=== PATIENT | male | born 1990 | race Caucasian/White ===

== ENCOUNTER 2017-09-25 15:49 | Emergency (ER) | payer SELFPAY ==
--- NOTE | 2017-09-25 15:54 | PDOC ---
History of Present Illness - General History Source: EMS, Significant Other (Girlfriend) Exam Limitations: Unresponsive - History of Present Illness Initial Comments: 09/25/17 16:33 The patient is a 27 year old male with a significant PMH of cigarette smoker and heroin use presents to the emergency department via EMS for overdose. The patient is unresponsive at presentation so history was provided by girlfriend, EMS, and [place]' police officers. As per the girlfriend, the patient used heroin last night and used Xanax this morning. According to [place] police officers, they were called in by [facility] for overdose where he was going for drug detox. The patient's girlfriend reports she has been living with the patient in a car. Allergies: NKA Past surgical history: None reported. Social history: Cigarette use (10/day). Heroin and crack/cocaine use. No reported alcohol use. <Falguni Seo - Last Filed: 09/25/17 16:35> <Ginny Vázquez - Last Filed: 09/26/17 16:24> - General Stated Complaint: OVERDOSE Time Seen by Provider: 09/25/17 15:54 Past History <Falguni Seo - Last Filed: 09/25/17 16:35> <Ginny Vázquez - Last Filed: 09/26/17 16:24> - Past Medical History Allergies/Adverse Reactions: Allergies Allergy/AdvReac Type Severity Reaction Status Date / Time Penicillins Allergy Rash Verified 09/25/17 17:07 Home Medications: Ambulatory Orders NK [No Known Home Medication] 09/25/17 Review of Systems - Review of Systems Able to Perform ROS?: No (intoxicated) <Ginny Vázquez - Last Filed: 09/26/17 16:24> *Physical Exam - Vital Signs Last Vital Signs Temp Pulse Resp BP Pulse Ox 97.8 F 52 L 18 125/80 100 09/25/17 16:00 09/25/17 16:00 09/25/17 16:00 09/25/17 16:00 09/25/17 16:00 <Falguni Seo - Last Filed: 09/25/17 16:35> - Physical Exam Comments: GENERAL: Sleeping, awakens to noxious stimuli. Normal respiratory rate. HEAD: No signs of trauma EYES: Pupils pinpoint but reactive, EOMI, sclera anicteric, conjunctiva clear ENT: Auricles normal inspection, hearing grossly normal, nares patent, oropharynx clear without exudates. Moist mucosa NECK: Normal ROM, supple, no lymphadenopathy, JVD, or masses LUNGS: Breath sounds equal, clear to auscultation bilaterally. No wheezes, and no crackles HEART: Regular rate and rhythm, normal S1 and S2, no murmurs, rubs or gallops ABDOMEN: Soft, nontender, normoactive bowel sounds. No guarding, no rebound. No masses EXTREMITIES: Normal range of motion, no edema. No clubbing or cyanosis. No cords, erythema, or tenderness NEUROLOGICAL: Limited by AMS. Moves all extremities. SKIN: Warm, Dry, normal turgor, no rashes or lesions noted. <Ginny Vázquez - Last Filed: 09/26/17 16:24> ED Treatment Course - ADDITIONAL ORDERS Additional order review: Laboratory Results 09/25/17 15:59 POC Glucometer [id number] 09/25/17 15:59 POC Glucometer [id number] <Falguni Seo - Last Filed: 09/25/17 16:35> - LABORATORY CBC & Chemistry Diagram: 09/25/17 17:00 09/25/17 17:00 <Ginny Vázquez - Last Filed: 09/26/17 16:24> Medical Decision Making - Medical Decision Making 09/25/17 19:[address] Ulloa at 7pm shift change. Pt is maintaining his airway , still not ambulatory, not yet ready for discharge. Continue to monitor to sobriety. <Ginny Vázquez - Last Filed: 09/26/17 16:24> *DC/Admit/Observation/Transfer - Attestations Scribe Attestion: 09/25/17 16:35 Documentation prepared by Falguni Seo, acting as medical receptionist assistant for Ginny Vázquez MD. <Falguni Seo - Last Filed: 09/25/17 16:35> <Ginny Vázquez - Last Filed: 09/26/17 16:24> Diagnosis at time of Disposition: Overdose, Heroin abuse - Discharge Dispostion Disposition: HOME Condition at time of disposition: Stable - Patient Instructions Printed Discharge Instructions: Narcotic Abuse Additional Instructions: please follow up with a rehab ads soon as possible.
[2017-09-25] MEDS ORDERED: NALOXONE HCL 0.4 MG/ML VIAL ONE (16:02)
[2017-09-25 16:15] VITALS: BMI 21.2
[2017-09-25 17:07] LABS: BASO % 0.9 % (0-2.0); EOS # 0.4 # (0-4.5); EOS % 9.3 % (0-4.5); MCH 29.9 pg (25.7-33.7); MCHC 33.4 g/dl (32.0-35.9); MEAN CELL VOLUME 89.6 fl (80-96); MEAN PLT VOLUME 8.4 fl (7.5-11.1); MONO # 0.6 # (3.8-10.2); NEUT # 2.5 # (42.8-82.8); NEUT % 53.9 % (42.8-82.8); PLATELET COUNT 178 K/MM3 (134-434); RDW 12.4 % (11.9-15.9); WHITE BLOOD COUNT 4.6 K/mm3 (4.0-10.0)
[2017-09-25 17:21] LABS: ALCOHOL < 5.0 mg/dl (0-5)
[2017-09-25 17:23] LABS: SALICYLATE < 4.0 mg/dl (0.0-30.0)
[2017-09-25 17:24] LABS: ALBUMIN 3.4 g/dl (3.4-5.0); ANION GAP 5 (8-16); BILIRUBIN,TOTAL 0.3 mg/dL (0.2-1.0); CALCIUM 8.3 mg/dL (8.5-10.1); CO2 31 mmol/L (21-32); CREATININE 0.8 mg/dL (0.7-1.3); GLUCOSE,RANDOM 99 mg/dL (74-106); SGOT/AST 29 U/L (15-37); SGPT/ALT 35 U/L (12-78); TOT PROT 6.5 g/dl (6.4-8.2)
[2017-09-25 17:25] LABS: ALK PHOS 74 U/L (45-117)
--- NOTE | 2017-09-26 07:38 | PDOC ---
*Physical Exam - Vital Signs Last Vital Signs Temp Pulse Resp BP Pulse Ox 97.8 F 79 19 113/66 99 09/25/17 16:00 09/26/17 07:17 09/26/17 07:17 09/26/17 07:17 09/26/17 04:00 ED Treatment Course - LABORATORY CBC & Chemistry Diagram: 09/25/17 17:00 09/25/17 17:00 - ADDITIONAL ORDERS Additional order review: 09/25/17 09/25/17 17:00 15:59 RBC 4.29 MCV 89.6 MCHC 33.4 RDW 12.4 MPV 8.4 Neutrophils % 53.9 Lymphocytes % 21.8 Monocytes % 14.1 H Eosinophils % 9.3 H Basophils % 0.9 POC Glucometer [id number] Medical Decision Making - Medical Decision Making 09/26/17 07:38 Pt is alert and awake. Denies any complaints at this time. Pt is currently accompained by girlfriend. States wants to see family and will follow up with [facility]. Didn't want to wait for phone call to be made. *DC/Admit/Observation/Transfer Diagnosis at time of Disposition: Overdose, Heroin abuse - Discharge Dispostion Disposition: HOME Condition at time of disposition: Stable Admit: No - Referrals - Patient Instructions Printed Discharge Instructions: Narcotic Abuse Additional Instructions: please follow up with a rehab ads soon as possible. - Post Discharge Activity
[2017-09-26 08:22] VITALS: BP 120/62; PULSE 76; TEMP 97.9
== END 2017-09-26 07:40 | disposition home or self-care (01) ==
LOC: JER 15:49
DX: T40.1X1A Poisoning by heroin, accidental (unintentional), initial encounter (principal); Y92.89 Other specified places as the place of occurrence of the external cause
CPT/HCPCS: 36415; 80053; 80307; 85025; 99285-25

== ENCOUNTER 2017-09-27 18:31 | Inpatient (IN) | payer OTHER ==
[2017-09-27 19:38] VITALS: BMI 24.9
--- NOTE | 2017-09-27 21:05 | HP ---
COWS - Scale Resting Pulse: 1= [place] 81-100 Sweatin=Flushed/Facial Moisture Restless Observation: 0= Sits Still Pupil Size: 1= Pupils >than Normal Bone or Joint Aches: 4=Acute Joint/Muscle Pain Runny Nose/ Eye Tearin= Runny Nose/Eyes GI Upset > 30mins: 3= Vomiting/Diarrhea (vomiting x 2, diarrhea) Tremor Observation: 2= Slight Tremor Visible Yawning Observation: 0= None Anxiety or Irritability: 4=Extreme Anxiety Goose Flesh Skin: 0=Smooth Skin COWS Score: 19 Admission ROS [facility] Chief Complaint: Opiate withdrawal symptoms Allergies/Adverse Reactions: Allergies Allergy/AdvReac Type Severity Reaction Status Date / Time ketorolac [From Toradol] Allergy Mild Rash Verified 09/27/17 22:16 phenytoin [From Dilantin] Allergy Mild Rash Verified 09/27/17 22:16 divalproex sodium Allergy Verified 09/27/17 22:16 [From Depakote] Penicillins Allergy Rash Verified 09/27/17 22:14 History of Present Illness: 27 years with a long history of opiates, cocaine, marijuana and xanax dependence is admitted to detox. Patient reports previous detox at [facility] in [place], [place] and insignificant period of sobriety. He has past medical history Hep C and depression. Denies suicidal ideation at this time. Clara states, '' I just want to get off this addiction problem'' Exam Limitations: No Limitations - Ebola screening Have you traveled outside of the country in the last 21 days: No Have you had contact with anyone from an Ebola affected area: No Have you been sick,other than usual withdrawal symptoms: No Do you have a fever: No - Review of Systems Constitutional: Chills, Loss of Appetite, Malaise, Night Sweats, Changes in sleep, Weakness EENT: reports: No Symptoms Reported Respiratory: reports: No Symptoms reported Cardiac: reports: No Symptoms Reported GI: reports: Diarrhea (x 2,), Nausea, Poor Appetite, Poor Fluid Intake, Vomiting , Abdominal cramping : reports: No Symptoms Reported Musculoskeletal: reports: Joint Pain, Muscle Pain, Muscle Weakness Integumentary: reports: Flushing Neuro: reports: Headache, Tingling, Tremors Endocrine: reports: No Symptoms Reported Hematology: reports: No Symptoms Reported Psychiatric: reports: Mood/Affect Appropiate, Orientated x3, Agitated, Anxious, Depressed Other Systems: Reviewed and Negative Patient History - Patient Medical History Hx Anemia: No Hx Asthma: No Hx Chronic Obstructive Pulmonary Disease (COPD): No Hx Cancer: No Hx Cardiac Disorders: No Hx Congestive Heart Failure: No Hx Hypertension: No Hx Hypercholesterolemia: No Hx Pacemaker: No HX Cerebrovascular Accident: No Hx Seizures: No Hx Dementia: No Hx Diabetes: No Hx Gastrointestinal Disorders: No Hx Liver Disease: No Hx Genitourinary Disorders: No Hx Sexually Transmitted Disorders: No Hx Renal Disease (ESRD): No Hx Thyroid Disease: No Hx Human Immunodeficiency Virus (HIV): No (Negative 07/2017) Hx Hepatitis C: Yes Hx Depression: Yes Hx Suicide Attempt: No (Denies suicidal ideation) Hx Bipolar Disorder: Yes Hx Schizophrenia: No - Patient Surgical History Past Surgical History: No - PPD History Previous Implant?: Yes Documented Results: Negative w/proof Implanted On Prior [facility] Admission?: Yes PPD to be Administered?: No - Smoking Cessation Smoking history: Current every day smoker Have you smoked in the past 12 months: Yes Aproximately how many cigarettes per day: 10 Hx Chewing Tobacco Use: No Initiated information on smoking cessation: Yes 'Breaking Loose' booklet given: 09/27/17 - Substance & Tx. History Hx Alcohol Use: No Hx Substance Use: Yes Substance Use Type: Cocaine, Heroin, Marijuana, Opiates - Substances Abused Heroin Route: Injection Frequency: Daily Amount used: 20 bags Age of first use: 22 Date of Last Use: 09/26/17 Marijuana/Hashish Route: Smoking Frequency: 3-6 times per week Amount used: 1 gram Age of first use: 27 Date of Last Use: 09/25/17 Alprazolam (Xanax) Route: Oral Frequency: Daily Amount used: 3 x 2mg tablet Age of first use: 27 Date of Last Use: 09/26/17 Family Disease History - Family Disease History Family Disease History: Other: Father (Opiate addiction) Admission Physical Exam [facility] - Vital Signs Vital Signs: Vital Signs - 24 hr 09/27/17 19:31 Temperature 96 F L Pulse Rate 98 H Respiratory 18 Rate Blood Pressure 147/71 - Physical General Appearance: Yes: Moderate Distress, Tremorous, Irritable, Sweating, Anxious HEENTM: Yes: EOMI, Normal Voice, ELIZABETH Respiratory: Yes: Lungs Clear, Normal Breath Sounds, No Respiratory Distress Neck: Yes: Supple, Trachea in good position Breast: Yes: Breast Exam Deferred Abdominal: Yes: Normal Bowel Sounds, Flat, Soft Genitourinary: Yes: Within Normal Limits Back: Yes: Within Normal Limits Musculoskeletal: Yes: Back pain, Muscle Pain, Muscle weakness Extremities: Yes: Tremors Neurological: Yes: Within Normal Limits, Alert, Normal Mood/Affect, Normal Response Integumentary: Yes: Dry, Track Vyas (right hand) Lymphatic: Yes: Within Normal Limits - Diagnostic (1) Opioid dependence with withdrawal Current Visit: Yes Status: Chronic (2) Cocaine dependence with withdrawal Current Visit: Yes Status: Chronic (3) Cannabis dependence, uncomplicated Current Visit: Yes Status: Chronic (4) Sedative, hypnotic or anxiolytic dependence with withdrawal, uncomplicated Current Visit: Yes Status: Chronic (5) Nicotine dependence Current Visit: Yes Status: Chronic (6) Hep C w/o coma, chronic Current Visit: Yes Status: Chronic (7) Depression Current Visit: Yes Status: Chronic Cleared for Admission [facility] - Detox or Rehab [facility] Level of Care: Medically Managed Detox Regimen/Protocol: Methadone [facility] Breath Alcohol Content Breath Alcohol Content: 0 Urine Drug Screen - Results Drug Screen Negative: No Urine Drug Screen Results: THC-Marijuana, DRISS-Cocaine, OPI-Opiates, BZO- Benzodiazepines, TCA-Tricyclic Antidepress
[2017-09-27] MEDS ORDERED: METHADONE HCL 10 MG TABLET (FOR DETOX USE ONLY) PO ONE ×2 (21:32→23:00)
[2017-09-27] MEDS ORDERED: MAGNESIUM CITRATE 300 ML BOTTLE PO PRN (21:32)
[2017-09-27] MEDS ORDERED: NICOTINE POLACRILEX 2 MG GUM BUC PRN (21:32)
[2017-09-27] MEDS ORDERED: guaiFENesin/D-METHORPHAN HB 10 ML UNIT-DOSE CUPS PO PRN (21:32)
[2017-09-27] MEDS ORDERED: IBUPROFEN 400 MG TABLET (FP) PO PRN (21:32)
[2017-09-27] MEDS ORDERED: LOPERAMIDE HCL 2 MG CAPSULE PO PRN (21:32)
[2017-09-27] MEDS ORDERED: MAGNESIUM HYDROX 2400MG/30ML ORAL SUSPENSION 30 ML CUP PO PRN (21:32)
[2017-09-27] MEDS ORDERED: ACETAMINOPHEN 325 MG TABLET (FP) PO PRN (21:32)
[2017-09-27] MEDS ORDERED: MENTHOL/PHENOL 1 EACH UD MM PRN (21:32)
[2017-09-27] MEDS ORDERED: MAG HYDROX/AL HYDROX/SIMETH 30 ML UNIT-DOSE CUP PO PRN (21:32)
[2017-09-27] MEDS ORDERED: P-EPHED 60MG/TRIPROLIDI 2.5MG TABLET PO PRN (21:32)
[2017-09-27] MEDS: THIAMINE HCL 100 MG TABLET (FP) PO SCH (23:08)
[2017-09-27] MEDS: diazePAM 5 MG TABLET PO PRN (23:08)
[2017-09-28 02:18] LABS: URINE APPEARANCE TURBID; URINE BILIRUBIN NEGATIVE (NEGATIVE); URINE BLOOD NEGATIVE (NEGATIVE); URINE COLOR AMBER; URINE GLUCOSE (UA) NEGATIVE (NEGATIVE); URINE KETONE NEGATIVE (NEGATIVE); URINE LEUK ESTERASE NEGATIVE (NEGATIVE); URINE NITRITE NEGATIVE (NEGATIVE)
[2017-09-28 02:28] LABS: URINE PROTEIN 1+ (NEGATIVE)
[2017-09-28 02:36] LABS: EPI CELLS RARE /HPF (FEW); URINE MUCUS FEW
[2017-09-28 09:55] LABS: HEMOGLOBIN 13.4 GM/dL (11.7-16.9); WHITE BLOOD COUNT 5.1 K/mm3 (4.0-10.0)
[2017-09-28 09:58] LABS: HEMATOCRIT 41.1 % (35.4-49); MCHC 32.7 g/dl (32.0-35.9); MEAN CELL VOLUME 88.8 fl (80-96); MEAN PLT VOLUME 8.4 fl (7.5-11.1); PLATELET COUNT 211 K/MM3 (134-434); RBC 4.63 M/mm3 (4.00-5.60); RDW 12.7 % (11.9-15.9)
[2017-09-28] MEDS ORDERED: METHADONE HCL 10 MG TABLET (FOR DETOX USE ONLY) PO ONE (10:00)
[2017-09-28 10:01] LABS: CHLORIDE 107 mmol/L (98-107); POTASSIUM 3.9 mmol/L (3.5-5.1); SODIUM 141 mmol/L (136-145)
[2017-09-28 10:12] LABS: ALBUMIN 3.4 g/dl (3.4-5.0); ALK PHOS 78 U/L (45-117); ANION GAP 6 (8-16); BILIRUBIN,TOTAL 0.3 mg/dL (0.2-1.0); BLOOD UREA NITROGEN 7 mg/dL (7-18); CALCIUM 8.5 mg/dL (8.5-10.1); CO2 28 mmol/L (21-32); CREATININE 0.7 mg/dL (0.7-1.3); GLUCOSE,RANDOM 94 mg/dL (74-106); SGOT/AST 18 U/L (15-37); SGPT/ALT 34 U/L (12-78); TOT PROT 6.5 g/dl (6.4-8.2)
[2017-09-28] MEDS: diazePAM 5 MG TABLET PO PRN ×3 (10:30→22:06)
[2017-09-28] MEDS: NICOTINE 14 MG/24 HOURS TOPICAL PATCH TD SCH (10:31)
[2017-09-28] MEDS: PRENATAL VITAMINS W/ FOLIC ACID TABLET (FP) PO SCH (10:31)
--- NOTE | 2017-09-28 12:54 | PN ---
[facility] COWS - Scale Resting Pulse: 0= [place] 80 or Below Sweatin= Chills/Flushing Restless Observation: 3= Extraneous Movement Pupil Size: 2= Moderately Dilated Bone or Joint Aches: 4=Acute Joint/Muscle Pain Runny Nose/ Eye Tearin= Nasal Congestion GI Upset > 30mins: 1= Stomach Cramp Tremor Observation of Outstretched Hands: 2= Slight Tremor Visible Yawning Observation: 2= >3x During Session Anxiety or Irritability: 2=Irritable/Anxious Goose Flesh Skin: 0=Smooth Skin COWS Score: 18 BHS Progress Note (SOAP) Subjective: DIARRHEA,NAUSEA,ANXIETY,IRRITABILITY,RESTLESS,INTERMITTENT SLEEP. Objective: 09/28/17 12:54 Vital Signs Temperature 97.0 F L 09/28/17 09:16 Pulse Rate 78 09/28/17 09:16 Respiratory Rate 18 09/28/17 09:16 Blood Pressure 114/74 09/28/17 09:16 O2 Sat by Pulse Oximetry (%) Laboratory Last Values WBC 5.1 K/mm3 (4.0-10.0) 09/28/17 07:30 RBC 4.63 M/mm3 (4.00-5.60) 09/28/17 07:30 Hgb 13.4 GM/dL (11.7-16.9) 09/28/17 07:30 Hct 41.1 % (35.4-49) 09/28/17 07:30 MCV 88.8 fl (80-96) 09/28/17 07:30 MCH 29.0 pg (25.7-33.7) 09/28/17 07:30 MCHC 32.7 g/dl (32.0-35.9) 09/28/17 07:30 RDW 12.7 % (11.9-15.9) 09/28/17 07:30 Plt Count 211 K/MM3 (134-434) 09/28/17 07:30 MPV 8.4 fl (7.5-11.1) 09/28/17 07:30 Sodium 141 mmol/L (136-145) 09/28/17 07:30 Potassium 3.9 mmol/L (3.5-5.1) 09/28/17 07:30 Chloride 107 mmol/L (98-107) 09/28/17 07:30 Carbon Dioxide 28 mmol/L (21-32) 09/28/17 07:30 Anion Gap 6 (8-16) L 09/28/17 07:30 BUN 7 mg/dL (7-18) D 09/28/17 07:30 Creatinine 0.7 mg/dL (0.7-1.3) 09/28/17 07:30 Creat Clearance w eGFR > 60 (>60) 09/28/17 07:30 Random Glucose 94 mg/dL (74-106) 09/28/17 07:30 Calcium 8.5 mg/dL (8.5-10.1) 09/28/17 07:30 Total Bilirubin 0.3 mg/dL (0.2-1.0) 09/28/17 07:30 AST 18 U/L (15-37) D 09/28/17 07:30 ALT 34 U/L (12-78) 09/28/17 07:30 Alkaline Phosphatase 78 U/L (45-117) 09/28/17 07:30 Total Protein 6.5 g/dl (6.4-8.2) 09/28/17 07:30 Albumin 3.4 g/dl (3.4-5.0) 09/28/17 07:30 Urine Color Agnieszka 09/27/17 00:01 Urine Appearance Turbid 09/27/17 00:01 Urine pH 7.0 (5.0-8.0) 09/27/17 00:01 Ur Specific [place] 1.026 (1.001-1.035) 09/27/17 00:01 Urine Protein 1+ (NEGATIVE) H 09/27/17 00:01 Urine Glucose (UA) Negative (NEGATIVE) 09/27/17 00:01 Urine Ketones Negative (NEGATIVE) 09/27/17 00:01 Urine Blood Negative (NEGATIVE) 09/27/17 00:01 Urine Nitrite Negative (NEGATIVE) 09/27/17 00:01 Urine Bilirubin Negative (NEGATIVE) 09/27/17 00:01 Urine Urobilinogen 2.0 mg/dL (0.2-1.0) 09/27/17 00:01 Urine WBC (Auto) None /hpf (3-5) 09/27/17 00:01 Urine RBC (Auto) 6 /hpf (0-3) 09/27/17 00:01 Ur Epithelial Cells Rare /HPF (FEW) 09/27/17 00:01 Urine Mucus Few 09/27/17 00:01 RPR Titer Nonreactive (NONREACTIVE) 09/28/17 07:30 Assessment: 09/28/17 12:54 WITHDRAWAL SX Plan: CONTINUE DETOX
--- NOTE | 2017-09-28 16:26 | CONSULT ---
[facility] Psychiatric Consult - Data Date of interview: 09/28/17 Admission source: [facility] Identifying data: First admission to [facility] (after transfer to [facility] for acute heroin overdose at [facility] on 09/25/17) for this 27 y/o male seeking detox treatment on for heroin,cocaine,marihuana and benzodiazepine (xanax) dependence.Patient is single without children, homeless,unemployed and reportedly deprived of financial support. Substance Abuse History: Discussed in this session.Patient confirmed continuous use of canabis,xanax,cocaine and heroin.See current [facility] report for details : Smoking history: Current every day smoker. Have you smoked in the past 12 months: Yes. Aproximately how many cigarettes per day: 10. Hx Chewing Tobacco Use: No. Initiated information on smoking cessation: Yes. 'Breaking Loose' booklet given: 09/27/17. - Substance & Tx. History. Hx Alcohol Use: No. Hx Substance Use: Yes. Substance Use Type: Cocaine, Heroin, Marijuana, Opiates. - Substances Abused. Heroin. Route: Injection. Frequency: Daily. Amount used: 20 bags. Age of first use: 22. Date of Last Use: 09/26/17. Marijuana /Hashish. Route: Smoking. Frequency: 3-6 times per week. Amount used: 1 gram. Age of first use: 27. Date of Last Use: 09/25/17. Alprazolam (Xanax) . Route: Oral. Frequency: Daily. Amount used: 3 x 2mg tablet. Age of first use: 27. Date of Last Use: 09/26/17 Medical History: History of bronchial asthma (chidhood),hepatitis C and antecedent of withdrawal-related seizures. Psychiatric History: Patient denies history of psychiatric hospitalizations.Diagnosed with MDD and Borderline Personality Disorder.Mr Negro declares that he is prescribed wellbutrin XL 300 mg/day (to [facility] clinicians,on admission,he endorsed gabapentin 800 mg X 4 times daily).Patient is an UNRELIABLE historian.Has no affiliation with psychiatric OPD care providers.Denies history of suicide attempts. Physical/Sexual Abuse/Trauma History: No reported history of abuse. Additional Comment: Urine Drug Screen Results: THC-Marijuana, DRISS-Cocaine, OPI- Opiates, BZO-Benzodiazepines, TCA-Tricyclic Antidepressant.Noted. Mental Status Exam - Mental Status Exam Alert and Oriented to: Time, Place, Person Cognitive Function: Good Patient Appearance: Disheveled Mood: Withdrawn, Anxious Affect: Mood Congruent Patient Behavior: Fatigued, Cooperative (superficially cooperative) Speech Pattern: Clear (non-spontaneous) Voice Loudness: Normal Thought Process: Goal Oriented Thought Disorder: Not Present Hallucinations: Denies Suicidal Ideation: Denies Homicidal Ideation: Denies Insight/Judgement: Poor Sleep: Poorly, Difficulty falling asleep (requests ambien) Appetite: Good Muscle strength/Tone: Normal Gait/Station: Normal Psychiatric Findings - Problem List ([place] 1, 2,3) (1) Opioid dependence with withdrawal Current Visit: Yes Status: Acute (2) Cocaine dependence with withdrawal Current Visit: Yes Status: Acute (3) Sedative, hypnotic or anxiolytic dependence with withdrawal, uncomplicated Current Visit: Yes Status: Acute (4) Cannabis dependence, uncomplicated Current Visit: Yes Status: Acute (5) Nicotine dependence Current Visit: Yes Status: Chronic Qualifiers: Nicotine product type: cigarettes Substance use status: in withdrawal Qualified Code(s): F17.213 - Nicotine dependence, cigarettes, with withdrawal (6) Substance induced mood disorder Current Visit: Yes Status: Acute (7) Insomnia Current Visit: Yes Status: Acute - Initial Treatment Plan Initial Treatment Plan: Psychoeducation.Sleep hygiene.Detoxification in progress.Observe WITHOUT psychotropic medications other than current detoxification protocol.Patient made aware of careplan.Agrees.Survey of pharmacy claims : not informative.Will follow.
[2017-09-28] MEDS: THIAMINE HCL 100 MG TABLET (FP) PO SCH (22:06)
[2017-09-29] MEDS ORDERED: ONDANSETRON *ODT* 4 MG TABLET SL PRN (08:45)
[2017-09-29] MEDS ORDERED: METHOCARBAMOL 500 MG TABLET PO PRN (08:45)
[2017-09-29] MEDS: diazePAM 5 MG TABLET PO PRN (08:56)
[2017-09-29 09:07] VITALS: BP 123/76; PULSE 77; TEMP 95.7
[2017-09-29] MEDS ORDERED: METHADONE HCL 5 MG TABLET (FOR DETOX USE ONLY) PO ONE (10:00)
[2017-09-29] MEDS: PRENATAL VITAMINS W/ FOLIC ACID TABLET (FP) PO SCH (10:37)
[2017-09-29] MEDS: NICOTINE 14 MG/24 HOURS TOPICAL PATCH TD SCH (10:37)
--- NOTE | 2017-09-29 13:11 | DS ---
[facility] Detox Discharge Summary Admission Date: 09/27/17 Discharge Date: 09/29/17 - History Present History: Cannabis Dependence, Cocaine Dependence, Opioid Dependence, Sedative Dependence Additional Comments: PATIENT HAS PERSONAL ISSUE TO ATTEND TO DOES NOT WISH TO STAY TO COMPLETE DETOX REGIMEN. RISKS OF LEAVING DETOX UNIT PRIOR TO COMPLETION OF DETOX REGIMEN DISCUSSED WITH PATIENT. PATIENT ADVISED TO GO IMMEDIATELY TO NEAREST ER SHOULD ANY INTOLERABLE DETOX SYMPTOMS DEVELOP AT ANY TIME. PATIENT REPORTS HISTORY OF SEIZURES FOR WHICH HE IS PRESCRIBED GABAPENTIN, 800 MG PO QID. PRESCRIPTION FOR GABAPENTIN, 800 MG PO QID SENT TO PATIENT'S PHARMACY ([facility], [place]) FOR 14 DAYS UNTIL PATIENT ABLE TO CONSULT OUTSIDE MEDICAL PROVIDER. PATIENT LEFT DETOX UNIT IN STABLE MEDICAL CONDITION. Pertinent Past History: Hep C, Depression, Bipolar Disorder, Nicotine Dependence. - Physical Exam Results Vital Signs: Vital Signs Temperature 95.7 F L 09/29/17 09:06 Pulse Rate 77 09/29/17 09:06 Respiratory Rate 17 09/29/17 09:06 Blood Pressure 123/76 09/29/17 09:06 O2 Sat by Pulse Oximetry (%) Pertinent Admission Physical Exam Findings: WITHDRAWAL SYMPTOMS. Laboratory Tests 09/27/17 09/28/17 09/28/17 00:01 07:30 07:30 WBC 5.1 RBC 4.63 Hgb 13.4 Hct 41.1 MCV 88.8 MCH 29.0 MCHC 32.7 RDW 12.7 Plt Count 211 MPV 8.4 Sodium 141 Potassium 3.9 Chloride 107 Carbon Dioxide 28 Anion Gap 6 L BUN 7 D Creatinine 0.7 Creat Clearance w eGFR > 60 Random Glucose 94 Calcium 8.5 Total Bilirubin 0.3 AST 18 D ALT 34 Alkaline Phosphatase 78 Total Protein 6.5 Albumin 3.4 Urine Color Agnieszka Urine Appearance Turbid Urine pH 7.0 Ur Specific [place] 1.026 Urine Protein 1+ H Urine Glucose (UA) Negative Urine Ketones Negative Urine Blood Negative Urine Nitrite Negative Urine Bilirubin Negative Urine Urobilinogen 2.0 Ur Leukocyte Esterase Negative Urine WBC (Auto) None Urine RBC (Auto) 6 Ur Epithelial Cells Rare Urine Mucus Few RPR Titer Hepatitis C Antibody 09/28/17 09/28/17 07:30 07:30 WBC RBC Hgb Hct MCV MCH MCHC RDW Plt Count MPV Sodium Potassium Chloride Carbon Dioxide Anion Gap BUN Creatinine Creat Clearance w eGFR Random Glucose Calcium Total Bilirubin AST ALT Alkaline Phosphatase Total Protein Albumin Urine Color Urine Appearance Urine pH Ur Specific [place] Urine Protein Urine Glucose (UA) Urine Ketones Urine Blood Urine Nitrite Urine Bilirubin Urine Urobilinogen Ur Leukocyte Esterase Urine WBC (Auto) Urine RBC (Auto) Ur Epithelial Cells Urine Mucus RPR Titer Nonreactive Hepatitis C Antibody >11.0 H LABS NOTED. - Treatment Hospital Course: Detoxed Safely - Medication Discharge Medications: Ambulatory Orders Gabapentin [Neurontin] 800 mg PO QID 14 Days #56 tablet 09/29/17 - Diagnosis (1) Cannabis dependence, uncomplicated Status: Acute (2) Cocaine dependence with withdrawal Status: Acute (3) Insomnia Status: Acute Qualifiers: Insomnia type: unspecified Qualified Code(s): G47.00 - Insomnia, unspecified (4) Opioid dependence with withdrawal Status: Acute (5) Sedative, hypnotic or anxiolytic dependence with withdrawal, uncomplicated Status: Acute (6) Hep C w/o coma, chronic Status: Chronic (7) Nicotine dependence Status: Chronic Qualifiers: Nicotine product type: cigarettes Substance use status: in withdrawal Qualified Code(s): F17.213 - Nicotine dependence, cigarettes, with withdrawal (8) Overdose Status: Acute Qualifiers: Encounter type: initial encounter Injury intent: undetermined intent Qualified Code(s): T50.904A - Poisoning by unspecified drugs, medicaments and biological substances, undetermined, initial encounter (9) Substance induced mood disorder Status: Acute (10) Depression Status: Chronic Qualifiers: Depression Type: unspecified Qualified Code(s): F32.9 - Major depressive disorder, single episode, unspecified - AMA Did Patient Leave Against Medical Advice: Yes (PT HAS PERSONAL ISSUE AND DOES NOT WISH TO STAY TO COMPLETE DETOX REGIMEN.)
[2017-09-30] MEDS ORDERED: METHADONE HCL 5 MG TABLET (FOR DETOX USE ONLY) PO ONE (10:00)
[2017-10-01] MEDS ORDERED: METHADONE HCL 10 MG TABLET (FOR DETOX USE ONLY) PO ONE (10:00)
[2017-10-02] MEDS ORDERED: METHADONE HCL 5 MG TABLET (FOR DETOX USE ONLY) PO ONE (06:00)
== END 2017-09-29 12:13 | disposition left against medical advice (07) | DRG 770 ==
LOC: YASAS 18:31 → Y3N 22:30
PROVIDERS: ADMIT Internal Medicine; ATTEND Internal Medicine
PROC: HZ2ZZZZ Detoxification Services for Substance Abuse Treatment (ICD-10-PCS; principal; 2017-09-27)
DX: F11.23 Opioid dependence with withdrawal (principal); F13.230 Sedative, hypnotic or anxiolytic dependence with withdrawal, uncomplicated; F14.20 Cocaine dependence, uncomplicated; F12.20 Cannabis dependence, uncomplicated; F17.210 Nicotine dependence, cigarettes, uncomplicated; F19.24 Other psychoactive substance dependence with psychoactive substance-induced mood disorder; F32.9 Major depressive disorder, single episode, unspecified; G47.00 Insomnia, unspecified; B18.2 Chronic viral hepatitis C; Z88.0 Allergy status to penicillin; Z88.8 Allergy status to other drugs, medicaments and biological substances; Z86.69 Personal history of other diseases of the nervous system and sense organs; Z59.0 Homelessness
CPT/HCPCS: 36415; 80053; 81003; 81015; 85027; 86593; 86803; 87522; 93005; 93010